=== PATIENT | male | born 1990 | race Caucasian/White ===

== ENCOUNTER 2021-04-26 19:30 | Emergency (ER) | payer MEDICAID ==
[~2021-04-26] VITALS: Ht 165.1 cm; Wt 74.8 kg
[2021-04-26 19:37] VITALS: BP_SYST 156
[2021-04-26] MEDS ORDERED: NACL 0.9% 1,000 ML IV ONE ×2 (19:45)
[2021-04-26 20:06] LABS: BASOPHILS % (AUTO) 0.6 % (0.0-2.0); EOSINOPHILS # (AUTO) 0.2 K/uL (0.0-0.4); EOSINOPHILS % (AUTO) 2.2 % (0.0-4.0); HEMOGLOBIN 17.7 g/dL (14.0-18.0); LYMPHOCYTES # (AUTO) 3.3 K/uL (1.0-5.5); LYMPHOCYTES % (AUTO) 37.9 % (20.5-51.5); MEAN CORPUSCULAR HEMOGLOBIN 32 pg (27-31); MEAN CORPUSCULAR HGB CONC 34 % (32-36); MEAN CORPUSCULAR VOLUME 95 fL (79.0-98.0); MONOCYTES # (AUTO) 0.5 K/uL (0.0-1.0); MONOCYTES % (AUTO) 6.4 % (1.7-9.3); NEUTROPHILS # (AUTO) 4.6 K/uL (1.8-7.7); NEUTROPHILS % (AUTO) 52.9 % (40.0-70.0); PLATELET COUNT (AUTO) 270 K/uL (130-430); RED CELL DISTRIBUTION WIDTH 13.2 % (9.0-15.0); WHITE BLOOD COUNT (AUTO) 8.6 K/uL (4.8-10.8)
[2021-04-26 20:29] LABS: ANION GAP 19 (5-15); CHLORIDE 105 mmol/L (98-107); CREATININE 1.11 mg/dL (0.55-1.30); GLUCOSE 141 mg/dL (70-99); POTASSIUM 3.2 mmol/L (3.5-5.1); SODIUM SERUM 144 mmol/L (136-145); UREA NITROGEN, BLOOD 9 mg/dL (8-21)
[2021-04-26 20:30] LABS: GFR AFRICAN AMERICAN 99 mL/min (>90)
[2021-04-26 20:36] LABS: ALANINE AMINOTRANSFERASE 190 U/L (12-78); ALBUMIN 4.1 g/dL (3.4-4.8); ALCOHOL, BLOOD 206 mg/dL (<10); ASPARTATE AMINOTRANSFERASE 114 U/L (10-37); TOTAL BILIRUBIN 0.3 mg/dL (0.0-1.0)
[2021-04-26 20:38] LABS: ACETAMINOPHEN < 1 ug/mL (1-30)
[2021-04-26] MEDS ORDERED: DIPH-TET-PERTUS Vaccine 0.5 ML VIAL (ADACEL) I.M. ONE (21:00)
[2021-04-26] MEDS ORDERED: POTASSIUM CHLORIDE 20 MEQ/PKT PACKET PO ONE (21:15)
[2021-04-26 22:58] LABS: BARBITURATE, URINE NEGATIVE (NEG <=200); BENZODIAZEPINE, URINE POSITIVE (NEG <=150); CANNABINOID, URINE POSITIVE (NEG <=50); COCAINE, URINE NEGATIVE (NEG <=150); METHAMPHETAMINES SCREEN,URINE NEGATIVE (NEG <=500); OPIATE, URINE NEGATIVE (NEG <=100); PHENCYCLIDINE SCREEN,URINE NEGATIVE (NEG <=25); URINE AMPHETAMINE NEGATIVE (NEG <=500); URINE METHADONE NEGATIVE (NEG <=200)
[2021-04-26 22:59] LABS: UR TRICYCLIC ANTIDEPRESSANTS NEGATIVE (NEG <=300); URINE OXYCODONE SCREEN NEGATIVE (NEG <=100); URINE PROPOXYPHENE SCREEN NEGATIVE (NEG <=300)
[2021-04-26] MEDS ORDERED: ACETAMINOPHEN 325 MG TABLET ONE (23:02)
[2021-04-26 23:05] VITALS: BP_SYST 144
[2021-04-26] MEDS ORDERED: ACETAMINOPHEN 325 MG TABLET PO ONE (23:15)
== END 2021-04-26 23:05 ==
LOC: SED 19:30
DX: S01.511A Laceration without foreign body of lip, initial encounter (principal); F23 Brief psychotic disorder; E87.6 Hypokalemia; F10.129 Alcohol abuse with intoxication, unspecified; Z79.899 Other long term (current) drug therapy; W26.0XXA Contact with knife, initial encounter; Y93.89 Activity, other specified; Y92.89 Other specified places as the place of occurrence of the external cause; Y99.8 Other external cause status
CPT/HCPCS: 12011; 36415; 80053; 80307; 82550; 85025; 90471; 90715; 99283; G0480; G0481; G0482